=== PATIENT | male | born 1970 | race Caucasian/White ===

== ENCOUNTER 2017-02-06 11:35 | Emergency (ER) | payer OTHER ==
[~2017-02-06] VITALS: Ht 177.8 cm; Wt 122.0 kg
[~2017-02-06 11:35] MED LIST: CLC/300 PO; HYDR-5688 PO
[2017-02-06 11:40] VITALS: TEMP 36.7; Ht 177.8 cm; Wt 122.0 kg
[2017-02-06] MEDS ORDERED: ACETAMINOPHEN 500 MG TAB PO STA (12:41)
--- NOTE | 2017-02-06 13:50 | DIAGNOSTIC IMAGING REPORT ---
LUMBAR SPINE CT CT DOSE: 2028.96 mGy.cm HISTORY: fall 6-7 ft onto back; lumbar spine TECHNIQUE: Multiaxial CT images of the lumbar spine were performed and reformatted in the sagittal and coronal plane without the use of contrast. COMPARISON: None. FINDINGS: For the purpose of this report S1 is demonstrated to be a transitional vertebra with a hypoplastic S1-S2 disc space and partial lumbarization on the right. There is 8 mm of anterolisthesis of L5 on S1 due to the bilateral L5 spondylolysis. Moderate disc space narrowing at L5-S1. Remaining disc spaces are preserved. Minimal anterior wedging within the T12 and L1 vertebral bodies consistent with acute superior endplate compression fractures. No associated retropulsion. There is hypertrophy and calcified ligamentum flavum at the L5-S1 level and this results in moderate central canal narrowing. There is severe bilateral neural foraminal narrowing at L5-S1 primarily due to the spondylolisthesis. The sacrum appears intact. IMPRESSION: 1. Acute superior endplate compression fractures at T12 and L1 demonstrating minimal loss of height anteriorly. No retropulsion. 2. Bilateral L5 spondylolysis with associated grade II anterolisthesis. This results in moderate central canal narrowing and severe bilateral neural foraminal narrowing at the L5-S1 level. Electronically signed by: Ernesto Small M.D. 02/06/2017 1:49 PM Dictated Date/Time: 02/06/2017 1:40 PM
[2017-02-06] MEDS ORDERED: HYDR-5688 PO (14:15)
[2017-02-06 14:47] VITALS: BP 153/96; PULSE 80; O2SAT 96
--- NOTE | 2017-02-07 07:05 | EMERGENCY ROOM VISIT NOTE ---
ED Visit Note First contact with patient: 12:18 Chief Complaint: Lower back pain. History of Present Illness: Mr. Tucker is a 46-year-old white male who ambulates into the ED complaining of lumbar back pain. Patient reports approximately 2 hours ago he was standing on a latter, lost his balance and fell approximately 6 feet onto the floor. He reports at the time of the fall he did not strike his head or have loss of consciousness and since the fall he is denying all signs of head injury. He is complaining currently of lumbar back pain in the L1 to L3 area. He describes his pain as a deep achy sensation. He rates his discomfort 6/10. The pain is nonradiating. His pain worsens with palpation and all movements of the lumbar spine. He has not identified any alleviating factors related to the pain. He has not taken any medications for his pain prior to arrival at the hospital. He denies any associated symptoms including neck pain, upper back pain, chest pain, shortness of breath, abdominal pain, nausea, vomiting, lower extremity weakness/numbness/tingling, genital paresthesias, bowel and bladder dysfunction. Review of Systems: As noted above in history of present illness. 8 body systems were reviewed and found to be negative as noted above. Past Medical History: Hypertension, bronchitis, status post gastric bypass. Current Medications: Patient denies. Allergies to Medications: NSAIDs. Social History: Patient is currently employed; he feels safe in his home environment; he denies tobacco and alcohol use. Physical Examination: Vital Signs: Date Time Temp Pulse Resp B/P Pulse Ox O2 Delivery O2 Flow Rate FiO2 02/06/17 14:47 80 153/96 96 02/06/17 11:40 36.7 81 18 129/92 97 Room Air GENERAL: 46-year-old male in moderate distress due to pain, nontoxic-appearing, afebrile and hemodynamically stable. NEUROLOGICAL: Awake, alert and oriented to person, place and time. Answering questions appropriately and following commands. Normal gait. Good hand eye coordination. No focal motor sensory deficits. Cranial nerves II through XII grossly intact. Good short-term and long-term recall. SKIN: Warm, dry and pink. No soft tissue trauma noted. HEENT: Atraumatic and normocephalic. PERRLA. No facial trauma. No malocclusion. Airway patent. Speech normal. Trachea midline. No jugular venous distention. BACK: No tenderness over the bony cervical and thoracic spines. Range of motion of the cervical spine. No CVA tenderness. Moderate tenderness over L1 through L3 without palpable bony deformity, step-offs, bony crepitus. Decreased range of motion and lumbar spine due to pain. THORAX: Lungs sounds are clear to auscultation and equal bilaterally with symmetrical chest wall. No crepitus, tenderness, subcutaneous air or deformities noted. HEART: Regular rate and rhythm. No gallops, rubs or murmurs are appreciated. ABDOMEN: Flat, soft and nontender. Positive bowel sounds in all quadrants. No guarding, rigidity or organomegaly. EXTREMITIES: Moves all extremities well on command and with purpose. All distal neurovascular statuses are intact and equal bilaterally. Lower Extremities: No tenderness over the hips, knees or ankles. No gross bony deformity. No shortening or malrotation. 2+ patellar and Achilles deep tendon reflexes intact and equal bilaterally. 4/5 muscle strength in all movements of the hips, knees and ankles. He was able to distinguish light sensations through all dermatomes of the legs and feet. ED Course: Patient is assessed as noted above. Patient was given 1 g of Tylenol by mouth for pain. Lumbar Spine CT: Was reviewed by myself and shows an acute superior endplate compression fracture at T12-L1 demonstrating minimal loss of height anterior and no retropulsion, additionally radiologist notes bilateral L5 spondylolysis with grade II anterolisthesis resulting in moderate central canal narrowing and severe bilateral neural foraminal narrowing at the L5-S1 level. Patient's case was reviewed with Dr. Rucker; we agreed on diagnostic approach, treatment, disposition and plan. Patient was educated about tonight's findings and instructed on his treatment plan; he verbalized understanding and agreement with this plan. Clinical Impression: Acute endplate compression fracture at the T12-L1 area. Status post fall. Disposition: Patient discharged home in stable condition accompanied by his daughter; prior to departure he was reassessed and subjectively reported he was feeling the same. Plan: Comfort measures including use of ice, proper lifting and moving techniques and a sliding pain medication scale of acetaminophen and [place] were discussed with the patient; appropriate narcotic precautions were discussed with the patient. Patient was encouraged to follow-up with orthopedic back specialist for definitive care and treatment. Patient was encouraged return the ED for worsening pain, lower extremity weakness/numbness/tingling, bowel and bladder dysfunction, genital paresthesias or any new/concerning symptoms.
== END 2017-02-06 14:48 | disposition home or self-care (01) ==
LOC: C.EDB 11:36 → C.EDD 14:48
DX: S22.089A Unspecified fracture of T11-T12 vertebra, initial encounter for closed fracture (principal); S32.019A Unspecified fracture of first lumbar vertebra, initial encounter for closed fracture; W11.XXXA Fall on and from ladder, initial encounter; M47.016 Anterior spinal artery compression syndromes, lumbar region; I10 Essential (primary) hypertension; Z98.84 Bariatric surgery status; Z88.8 Allergy status to other drugs, medicaments and biological substances

== ENCOUNTER 2017-11-01 23:25 | Emergency (ER) | payer OTHER ==
[~2017-11-01] VITALS: Ht 175.3 cm; Wt 126.7 kg
[2017-11-01 23:29] VITALS: TEMP 36.5; Ht 175.3 cm; Wt 126.7 kg
[2017-11-01] MEDS ORDERED: AMPH30TA2 PO (23:59)
[2017-11-01] MEDS ORDERED: ESCI1TAB9 PO (23:59)
[2017-11-01] MEDS ORDERED: MOME6000 NAE (23:59)
[2017-11-02] MEDS ORDERED: PEDICHW50 PO (00:03)
[2017-11-02] MEDS ORDERED: CYAN1SUB12 SL (00:03)
[2017-11-02] MEDS ORDERED: CALC-393 PO (00:03)
[2017-11-02 00:10] LABS: BASO % 0.3 %; BASO ABS # 0.02 K/uL (0-0.2); EOS ABS # 0.16 K/uL (0-0.5); HEMATOCRIT 43.6 % (42-52); HEMOGLOBIN 14.9 g/dL (14.0-18.0); IG# 0.03 K/uL (0.00-0.02); LYMPH % 33.4 %; LYMPH ABS # 2.67 K/uL (1.2-3.4); MEAN CELL VOLUME 91.6 fL (80-100); MEAN CORPUSCULAR HEMOGLOBIN 31.3 pg (25-34); MEAN CORPUSCULAR HGB CONC 34.2 g/dl (32-36); MEAN PLATELET VOLUME 10.1 fL (7.4-10.4); MONO % 7.6 %; MONO ABS # 0.61 K/uL (0.11-0.59); NEUT % 56.3 %; NEUT ABS # 4.51 K/uL (1.4-6.5); PLATELET COUNT 199 K/uL (130-400); RED CELL DISTRIBUTION WIDTH CV 13.3 % (11.5-14.5); RED CELL DISTRIBUTION WIDTH SD 44.6 fL (36.4-46.3)
[2017-11-02 00:31] LABS: ALBUMIN 3.7 gm/dl (3.4-5.0); ALT/SGPT 36 U/L (12-78); AST/SGOT 20 U/L (15-37); BLOOD UREA NITROGEN 20 mg/dl (7-18); CALCIUM 8.7 mg/dl (8.5-10.1); CARBON DIOXIDE 26 mmol/L (21-32); CREATININE 1.18 mg/dl (0.60-1.40); GLUCOSE 96 mg/dl (70-99); POTASSIUM 4.3 mmol/L (3.5-5.1); SODIUM 138 mmol/L (136-145)
[2017-11-02 00:34] LABS: ALKALINE PHOSPHATASE 107 U/L (45-117); TOTAL PROTEIN 7.7 gm/dl (6.4-8.2)
[2017-11-02 01:01] VITALS: O2SAT 96
[2017-11-02 02:07] VITALS: BP 136/93; PULSE 72; O2SAT 94
--- NOTE | 2017-11-02 04:06 | EMERGENCY ROOM VISIT NOTE ---
History First contact with patient: 23:31 Chief Complaint: HEMATURIA Stated Complaint: URINATING BLOOD,LOWER ABD/BACK PAIN Nursing Triage Summary: red or bloody urine History of Present Illness The patient is a 47 year old male who presents to the Emergency Room with complaints of hematuria since 5 PM tonight. Patient states he finished urinating and he had a few drops of blood. No clots of blood. No obvious blood in the urine. He does not smoke. Patient states later around 9 PM he developed some low backache. Minimal, 2 out of 10. Discitis aching. Nothing makes it better or worse. Patient denies testicular pain, penile pain, penile laceration, urethral injury, abdominal pain, vomiting, diarrhea. No history of bladder cancer. No Family history of this. He has had a gastric bypass in the past. The who is a nurse here in this hospital looked at the penis and there was no injury. He is circumcised. Review of Systems See HPI for pertinent positives & negatives. A total of 10 systems reviewed and were otherwise negative. Past Medical/Surgical History Medical Problems: (1) Bronchitis (2) Hypertension Family History Cancer Depression FH: heart disease Hypertension Social History Smoking Status: Never Smoker Alcohol Use: none Marital Status: Housing Status: lives with family Current/Historical Medications Scheduled Calcium Carbonate (Calcium), 600 MG PO DAILY Cyanocobalamin (Vitamin B-12), 2,500 MCG SL DAILY Pediatric Multiple Vitamin W/ (Flintstones Chewable), 2 TAB PO DAILY Physical Exam Vital Signs Date Time Temp Pulse Resp B/P (MAP) Pulse Ox O2 Delivery O2 Flow Rate FiO2 11/02/17 02:07 72 16 136/93 94 11/02/17 01:08 79 11/02/17 01:01 96 Room Air 11/02/17 01:01 77 16 140/105 95 Room Air 11/01/17 23:29 36.5 90 18 145/103 95 Room Air Physical Exam VITALS: Vitals are noted on the nurse's note and reviewed by myself. Vital signs mildly hypertensive. GENERAL: Pleasant male, in no acute distress, nondiaphoretic, well-developed well-nourished. SKIN: Capillary reflex less than 2 seconds. HEENT: Normocephalic. PERRLA. EOMI. Nares patent. Mucous membranes moist. Neck is supple without nuchal rigidity. HEART: Regular rate and rhythm without murmurs gallops or rubs. LUNGS: Clear to auscultation bilaterally without wheezes, rales or rhonchi. No retractions or accessory muscle use. ABDOMEN: Positive bowel sounds x 4. Normal tympanic percussion. Soft, nontender, without masses or organomegaly. Aldana sign negative. No guarding or rebound tenderness. NO CVA tenderness MUSCULOSKELETAL: No gross musculoskeletal defects. No pedal edema. No calf tenderness. NEURO: Patient was alert and oriented to person place and time. Normal sensation to light and sharp touch. No focal neurological deficits. Medical Decision & Procedures Laboratory Results 11/01/17 23:50 Red Blood Count 4.76, Mean Corpuscular Volume 91.6, Mean Corpuscular Hemoglobin 31.3, Mean Corpuscular Hemoglobin Concent 34.2, Mean Platelet Volume 10.1, Neutrophils (%) (Auto) 56.3, Lymphocytes (%) (Auto) 33.4, Monocytes (%) (Auto) 7.6, Eosinophils (%) (Auto) 2.0, Basophils (%) (Auto) 0.3, Neutrophils # (Auto) 4.51, Lymphocytes # (Auto) 2.67, Monocytes # (Auto) 0.61, Eosinophils # (Auto) 0.16, Basophils # (Auto) 0.02 11/01/17 23:50 Test 11/01/17 23:50 White Blood Count 8.00 K/uL (4.8-10.8) Red Blood Count 4.76 M/uL (4.7-6.1) Hemoglobin 14.9 g/dL (14.0-18.0) Hematocrit 43.6 % (42-52) Mean Corpuscular Volume 91.6 fL (80-100) Mean Corpuscular Hemoglobin 31.3 pg (25-34) Mean Corpuscular Hemoglobin Concent 34.2 g/dl (32-36) Platelet Count 199 K/uL (130-400) Mean Platelet Volume 10.1 fL (7.4-10.4) Neutrophils (%) (Auto) 56.3 % Lymphocytes (%) (Auto) 33.4 % Monocytes (%) (Auto) 7.6 % Eosinophils (%) (Auto) 2.0 % Basophils (%) (Auto) 0.3 % Neutrophils # (Auto) 4.51 K/uL (1.4-6.5) Lymphocytes # (Auto) 2.67 K/uL (1.2-3.4) Monocytes # (Auto) 0.61 K/uL (0.11-0.59) Eosinophils # (Auto) 0.16 K/uL (0-0.5) Basophils # (Auto) 0.02 K/uL (0-0.2) RDW Standard Deviation 44.6 fL (36.4-46.3) RDW Coefficient of Variation 13.3 % (11.5-14.5) Immature Granulocyte % (Auto) 0.4 % Immature Granulocyte # (Auto) 0.03 K/uL (0.00-0.02) Urine Color YELLOW Urine Appearance CLEAR (CLEAR) Urine pH 5.0 (4.5-7.5) Urine Specific [place] 1.023 (1.000-1.030) Urine Protein NEG (NEG) Urine Glucose (UA) NEG (NEG) Urine Ketones NEG (NEG) Urine Occult Blood 3+ (NEG) Urine Nitrite NEG (NEG) Urine Bilirubin NEG (NEG) Urine Urobilinogen NEG (NEG) Urine Leukocyte Esterase TRACE (NEG) Urine WBC (Auto) 5-10 /hpf (0-5) Urine RBC (Auto) >30 /hpf (0-4) Urine Hyaline Casts (Auto) 1-5 /lpf (0-5) Urine Epithelial Cells (Auto) 10-20 /lpf (0-5) Urine Bacteria (Auto) NEG (NEG) Anion Gap 7.0 mmol/L (3-11) Est Creatinine Clear Calc Drug Dose 103.0 ml/min Estimated GFR () 85.3 Estimated GFR (Non- 73.6 BUN/Creatinine Ratio 17.1 (10-20) Calcium Level 8.7 mg/dl (8.5-10.1) Total Bilirubin 0.4 mg/dl (0.2-1) Direct Bilirubin < 0.1 mg/dl (0-0.2) Aspartate Amino Transf (AST/SGOT) 20 U/L (15-37) Alanine Aminotransferase (ALT/SGPT) 36 U/L (12-78) Alkaline Phosphatase 107 U/L (45-117) Total Creatine Kinase 81 U/L (39-308) Total Protein 7.7 gm/dl (6.4-8.2) Albumin 3.7 gm/dl (3.4-5.0) ED Course Prior records reviewed and summarized as above. Triage Nursing notes reviewed. Additional history obtained from family The patient's history was concerning for painless hematuria. Differential diagnosis: Etiologies such as UTI, kidney stone, bladder polyp, bladder carcinoma, urethral injury, penile injury, as well as others were entertained.. Physical examination: As above ER treatment provided: Patient was observed On reassessment the patient felt better. Diagnostics interpreted by me: The labs revealed stable H&H. Hematuria revealed urinalysis, urine culture was placed Imaging studies: Ultrasound the kidneys was reviewed with no hydronephrosis per radiology This appears to be penis hematuria. Patient was offered examination of his genitalia and declined. 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 Patient was informed that he needs to follow-up urology for further evaluation and treatment for the penis hematuria and will most likely need a cystostomy. He was advised to call in the morning for further evaluation treatment with follow-up with urology or here in the ER sooner for pain, fevers, vomiting, worsening signs or symptoms or as needed. She did not have acute abdomen on exam. He is well-appearing. By the evaluation outlined above emergent etiologies such as renal colic, UTI, as well as others were deemed relatively unlikely. The pt informed about the findings as listed above. All questions were answered and pleased with the treatment. Return instructions were outlined and the patient was discharged in stable condition. Case reviewed with my attending Referral: The patient was referred to urology and primary care physician for follow-up in 2 to 3 days for a recheck of the current condition. The chart was completed utilizing [employer] Speech voice recognition software. Grammatical errors, random word insertions, pronoun errors, and incomplete sentences are an occassional consequence of this system due to software limitations, ambient noise, and hardware issues. Any formal questions or concerns about the content, text, or information contained within the body of this dictation should be directly addressed to the physician certified physician's assistant for clarification. Medical Decision As above Medication Reconcilliation Current Medication List: was personally reviewed by me Blood Pressure Screening Patient's blood pressure: Normal blood pressure Impression Primary Impression: Hematuria Departure Information Dispostion Home / Self-Care Condition GOOD Referrals Dimas Parham D.O. Forms WORK / SCHOOL INSTRUCTIONS, HOME CARE DOCUMENTATION FORM, IMPORTANT VISIT INFORMATION Patient Instructions My [facility], ED Hematuria Additional Instructions Monitor your blood pressure. Continue current medications. Rest. Stay well hydrated. Follow-up with urology in 2-3 days, call for an appointment. Return to ER sooner for pain, fevers, vomiting, worsening signs or symptoms or as needed. Problem Qualifiers Primary Impression: Hematuria Hematuria type: unspecified type Qualified Codes: R31.9 - Hematuria, unspecified
--- NOTE | 2017-11-02 06:49 | DIAGNOSTIC IMAGING REPORT ---
RENAL ULTRASOUND CLINICAL HISTORY: Bilateral flank pain and hematuria. COMPARISON STUDY: None. TECHNIQUE: Sonography of the kidneys and the urinary bladder was performed. FINDINGS: The right kidney measures 11.3 x 5.2 x 4.9 cm and the left measures 11.1 x 4.4 x 5.9 cm. There is no hydronephrosis. Renal echogenicity, size and cortical thickness are normal. No calculi are identified by sonography. Both ureteral jets were identified. Incidental note is made of a large gallstone within the gallbladder. There is no gallbladder wall thickening. There was no sonographic Aldana's sign. Fatty infiltration of the liver is noted with mild splenomegaly. IMPRESSION: 1. No hydronephrosis. Unremarkable sonographic appearance of the kidneys. 2. Cholelithiasis. No evidence for acute cholecystitis. 3. Mild splenomegaly. 4. Fatty infiltration of the liver. Electronically signed by: Greg Stevenson M.D. 11/02/2017 6:48 AM Dictated Date/Time: 11/02/2017 6:46 AM
== END 2017-11-02 02:05 | disposition home or self-care (01) ==
LOC: C.EDB 23:26 → C.EDC 11-02 02:05
DX: R31.9 Hematuria, unspecified (principal); I10 Essential (primary) hypertension; Z95.1 Presence of aortocoronary bypass graft; Z98.890 Other specified postprocedural states; Z81.8 Family history of other mental and behavioral disorders; Z82.49 Family history of ischemic heart disease and other diseases of the circulatory system

== ENCOUNTER → 2017-11-09 | Outpatient (CLI) | payer OTHER ==
[~2017-11-09] MED LIST changes: +CALC-393 PO; -CLC/300 PO; +CYAN1SUB12 SL; -HYDR-5688 PO; +PEDICHW50 PO
== END | disposition home or self-care (01) ==
LOC: C.PATHSPEC 17:32
PROVIDERS: ATTEND Nurse Practitioner Adult Health
DX: R31.0 Gross hematuria (principal)

== ENCOUNTER → 2017-11-25 | Outpatient (CLI) | payer OTHER ==
[~2017-11-25] MED LIST changes: +OPTIRAY 320 IV PRN
--- NOTE | 2017-11-25 10:27 | DIAGNOSTIC IMAGING REPORT ---
ABD/PELVIS COMBO CLINICAL HISTORY: 47 years-old Male presenting with GROSS HEMATURIA. TECHNIQUE: Multidetector CT of the abdomen and pelvis was performed before and after the administration of intravenous contrast. IV contrast: 119 mL of Optiray 320. A dose lowering technique was used consistent with the principles of ALARA (as low as reasonably achievable). COMPARISON: Ultrasound from 11/02/2017. CT DOSE (mGy.cm): The estimated cumulative dose is 2217.02 mGycm. FINDINGS: Toe Lining Closer topogram: Unremarkable. Lung bases: Minimal basilar opacities, likely atelectasis. Normal heart size. No pericardial or pleural effusion. Liver: Normal morphology. No liver lesion. Patent hepatic vasculature. Biliary: No intrahepatic or extrahepatic biliary ductal dilatation. Normal gallbladder. Pancreas: Mild parenchymal atrophy. Spleen: Normal. Adrenal glands: Normal. Kidneys and ureters: No nephrolithiasis. No filling defect within the urinary collecting systems. Normal parenchymal enhancement bilaterally. No renal mass. No hydronephrosis. Normal ureters. Normal excretion from the kidneys bilaterally. Bladder: Allowing for underdistention and inhomogeneity of intraluminal contrast, the bladder is normal in appearance. Pelvic organs: Prostate and seminal vesicles normal. Bowel: Postsurgical changes of antecolic Monica-en-Y gastric bypass. No bowel obstruction or other complication. Gastrojejunostomy and jejunojejunostomy patent. No abnormal distention of the pancreaticobiliary limb. Peritoneal cavity: No free fluid or intraperitoneal gas. Lymph nodes: No enlarged lymph nodes in the abdomen or pelvis. Vasculature: Atherosclerosis of the normal caliber abdominal aorta. IVC patent. Abdominal wall: Normal. Musculoskeletal: Bilateral pars defects of L4 with grade 1 anterolisthesis of L4 on L5. IMPRESSION: 1. No evidence of renal calculi, filling defect within the urinary collecting systems, or renal or urothelial mass lesion. Evaluation of the bladder is somewhat limited. These negative findings do not exclude the potential utility of cystoscopy. 2. Postsurgical changes of Monica-en-Y gastric bypass without convocation. Electronically signed by: Virgil Sauceda M.D. 11/25/2017 10:25 AM Dictated Date/Time: 11/25/2017 10:15 AM
== END | disposition home or self-care (01) ==
LOC: C.CTS 09:10
PROVIDERS: ATTEND Nurse Practitioner Adult Health
DX: R31.0 Gross hematuria (principal); Z98.84 Bariatric surgery status